=== PATIENT | male | born 2000 | race Caucasian/White ===

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

== ENCOUNTER 2020-01-24 18:35 | Emergency (ER) | payer OTHER ==
[2020-01-24 18:56] VITALS: BP 104/62; PULSE 89; TEMP 98.7; BMI 28.5
== END 2020-01-24 20:11 | disposition home or self-care (01) ==
LOC: JERFT 18:35
PROC: 0HQ1XZZ Repair Face Skin, External Approach (ICD-10-PCS; principal; 2020-01-24)
DX: S01.81XA Laceration without foreign body of other part of head, initial encounter (principal); V00.131A Fall from skateboard, initial encounter
CPT/HCPCS: 70486-TC; 99284-25

== ENCOUNTER 2022-04-25 22:06 | Emergency (ER) | payer OTHER ==
[2022-04-25 22:25] VITALS: BP 122/77; PULSE 88; TEMP 99; BMI 31.1
[2022-04-25] MEDS ORDERED: DIPHTH,PERTUSS(ACELL),TET 0.5 ML DISP.SYRIN IM ONE ×2 (22:35→22:37)
== END 2022-04-25 22:42 | disposition home or self-care (01) ==
LOC: FER 22:06
PROC: 3E0234Z Introduction of Serum, Toxoid and Vaccine into Muscle, Percutaneous Approach (ICD-10-PCS; principal; 2022-04-25)
DX: S61.011A Laceration without foreign body of right thumb without damage to nail, initial encounter (principal); Y99.9 Unspecified external cause status
CPT/HCPCS: 90471; 90715; 99284-25

== ENCOUNTER 2022-08-02 20:55 | Emergency (ER) | payer OTHER ==
[2022-08-02 21:02] VITALS: BP 107/51; PULSE 96; RESP 18; TEMP 98.6; BMI 32.5
[2022-08-02] MEDS ORDERED: ACETAMINOPHEN 500 MG TABLET (FP) PO ONE (22:08)
[2022-08-02] MEDS ORDERED: ACETAMINOPHEN 500 MG TABLET (FP) ONE (22:09)
== END 2022-08-03 00:11 | disposition home or self-care (01) ==
LOC: JERFT 20:55
DX: Z04.1 Encounter for examination and observation following transport accident (principal); V89.2XXA Person injured in unspecified motor-vehicle accident, traffic, initial encounter; Y92.9 Unspecified place or not applicable
CPT/HCPCS: 70450-TC; 71046-TC-FY; 73610-TC-RT-FY; 74176-TC; 99284-25

== ENCOUNTER 2023-02-27 12:36 | Emergency (ER) | payer OTHER ==
[2023-02-27 12:53] VITALS: BP 122/68; PULSE 74; RESP 18; TEMP 98.1; BMI 29.4
[2023-02-27] MEDS ORDERED: IBUPROFEN 600 MG TABLET (FP) PO ONE ×2 (13:24→13:29)
== END 2023-02-27 13:35 | disposition home or self-care (01) ==
LOC: JER 12:36
DX: M25.571 Pain in right ankle and joints of right foot (principal); S93.401A Sprain of unspecified ligament of right ankle, initial encounter; R22.41 Localized swelling, mass and lump, right lower limb; X50.1XXA Overexertion from prolonged static or awkward postures, initial encounter; Y93.67 Activity, basketball
CPT/HCPCS: 73610-TC-RT-FY; 99283-25